=== PATIENT | female | born 1965 | race Caucasian/White ===

== ENCOUNTER 2016-11-16 11:24 | Emergency (ER) | payer MEDICARE, MEDICAID ==
[~2016-11-16] VITALS: Ht 152.4 cm; Wt 58.1 kg
[~2016-11-16 11:24] MED LIST: ACTOS45 MG PO; DETROL LA4 MG PO; GLYBURIDE5 MG PO; LIPITOR20 MG PO; PRILOSEC20 MG PO; TOUJEO300 U/ML SC
[2016-11-16 11:45] VITALS: BP 112/52
[2016-11-16] MEDS ORDERED: LISINOPRIL5 MG PO (11:45)
[2016-11-16] MEDS ORDERED: TAB-A-VITE W/IR1 TAB PO (11:45)
[2016-11-16] MEDS ORDERED: MONTELUKAST SOD10 MG PO (11:45)
[2016-11-16] MEDS ORDERED: METFORMIN500 MG PO (11:46)
[2016-11-16] MEDS ORDERED: CALCIUM/VITAMIN1 TA3 PO (11:47)
== END 2016-11-16 13:59 ==
LOC: ED 11:24
DX: Z76.0 Encounter for issue of repeat prescription (principal); Z88.1 Allergy status to other antibiotic agents; Z79.4 Long term (current) use of insulin